=== PATIENT | male | born 1985 | race African-American/Black ===

== ENCOUNTER 2020-06-02 11:50 | Emergency (ER) | payer SELFPAY ==
[2020-06-02 11:55] VITALS: BP 146/87; PULSE 74; TEMP 98.2; BMI 28.8
[2020-06-02] MEDS ORDERED: AZITHROMYCIN 500 MG TABLET PO ONE (13:04)
[2020-06-02] MEDS ORDERED: AZITHROMYCIN 500 MG TABLET ONE (13:34)
[2020-06-02] MEDS ORDERED: LIDOCAINE HCL 1%, 10 MG/ML (20ML VIAL) ONE (13:36)
== END 2020-06-02 13:58 | disposition home or self-care (01) ==
LOC: JERFT 11:50
DX: Z20.2 Contact with and (suspected) exposure to infections with a predominantly sexual mode of transmission (principal)
CPT/HCPCS: 99284-25